=== PATIENT | male | born 1955 | race Caucasian/White ===

== ENCOUNTER → 2024-02-02 06:19 | Day surgery (SDC) | payer OTHER, SELFPAY | LOC: GI 06:19 | PROVIDERS: ATTENDING PHYSICIAN Internal Medicine; FAMILY PHYSICIAN Family Medicine | DX: Z12.11 Encounter for screening for malignant neoplasm of colon (principal); K55.20 Angiodysplasia of colon without hemorrhage; K57.30 Diverticulosis of large intestine without perforation or abscess without bleeding; R19.5 Other fecal abnormalities; D12.0 Benign neoplasm of cecum; D12.2 Benign neoplasm of ascending colon; D12.3 Benign neoplasm of transverse colon; D12.5 Benign neoplasm of sigmoid colon | CPT/HCPCS: 45385; 88305 ==

== ENCOUNTER 2024-09-15 06:17 | Day surgery (SDC) | payer OTHER, SELFPAY ==
[2024-09-15 09:13] VITALS: BP 150/76
[2024-09-15 09:24] VITALS: BMI 33.4
[2024-09-15 09:25] VITALS: BMI 33.4
[2024-09-15 12:53] VITALS: BP 109/67
[2024-09-15 13:00] VITALS: BP 118/71
[2024-09-15 13:15] VITALS: BP 120/70
== END 2024-09-15 14:30 | disposition home or self-care (01) ==
LOC: GI 06:17
PROVIDERS: ATTENDING PHYSICIAN Internal Medicine Gastroenterology
DX: Z12.11 Encounter for screening for malignant neoplasm of colon (principal); D12.0 Benign neoplasm of cecum; K63.5 Polyp of colon; K57.30 Diverticulosis of large intestine without perforation or abscess without bleeding; K56.2 Volvulus; K64.0 First degree hemorrhoids; Z86.0101 Personal history of adenomatous and serrated colon polyps
CPT/HCPCS: 45385; 88305

== ENCOUNTER → 2025-02-12 14:01 | Outpatient (REF) | payer OTHER, SELFPAY | LOC: HWRCS 14:01 | PROVIDERS: ATTENDING PHYSICIAN Internal Medicine; FAMILY PHYSICIAN Family Medicine | DX: I25.10 Atherosclerotic heart disease of native coronary artery without angina pectoris (principal); R06.09 Other forms of dyspnea | CPT/HCPCS: 93306 ==